=== PATIENT | female | born 1950 ===

== ENCOUNTER 2018-05-21 06:22 | Day surgery (SDC) | payer OTHER ==
[~2018-05-21 06:22] MED LIST: ASPIR-TRIN325 MG PO; CARVEDILOL3.125 MG PO; FOLIC ACID1 MG PO; FORTAMET1000 MG PO; GLIPIZIDE10 MG PO; LIPITOR40 MG PO; LOSARTAN-HCTZ1 EAC2; M.V.I. ADULT10 ML IV; PROCARDIA PO
== END 2018-05-21 13:36 | disposition home or self-care (01) ==
LOC: CIR.AMB 06:22
DX: D24.2 Benign neoplasm of left breast (principal); N60.22 Fibroadenosis of left breast